=== PATIENT | male | born 2000 | race Caucasian/White ===

== ENCOUNTER 2024-10-20 03:08 | Emergency (ER) | payer OTHER, SELFPAY ==
[2024-10-20 03:08] VITALS: BMI 25.0
[2024-10-20 03:26] VITALS: BP 138/78
[2024-10-20 03:45] VITALS: BP 133/87
[2024-10-20 04:00] VITALS: BP 124/81
--- NOTE | 2024-10-20 04:37 | EDRN ---
Pt informed RN that he would be leaving as he had a flight to catch. RN instructed pt to wait so that she could inform the doc. Pt refused to go to CT at this time. Doc was informed of the pts request. on RN's arrival pt was no longer in the room
and had been seen leaving by other staff. Pt was Aox3 with steady gait, equal and active ROM in AE, and clear speech. Pt left in the company of his friend.
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
== END 2024-10-20 04:43 | disposition left against medical advice (07) ==
LOC: EMR 03:08
PROVIDERS: EMERGENCY PHYSICIAN Emergency Medicine
DX: S09.90XA Unspecified injury of head, initial encounter (principal); Y04.0XXA Assault by unarmed brawl or fight, initial encounter
CPT/HCPCS: 99282

== ENCOUNTER 2024-10-20 14:03 | Emergency (ER) | payer OTHER, SELFPAY ==
[2024-10-20 14:09] VITALS: BP 149/92
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
[2024-10-20 17:23] VITALS: BP 138/89
== END 2024-10-20 17:24 | disposition home or self-care (01) ==
LOC: EMR 14:03
PROVIDERS: EMERGENCY PHYSICIAN Emergency Medicine
DX: S02.2XXA Fracture of nasal bones, initial encounter for closed fracture (principal); S06.0XAA Concussion with loss of consciousness status unknown, initial encounter; Y04.0XXA Assault by unarmed brawl or fight, initial encounter
CPT/HCPCS: 99284; 70450; 70486